=== PATIENT | male | born 1985 | race Caucasian/White ===

== ENCOUNTER 2016-06-19 22:00 | Emergency (ER) | payer OTHER ==
[~2016-06-19] VITALS: Ht 188 cm; Wt 99.8 kg
[2016-06-19] MEDS ORDERED: ATORVASTATIN CA40 M1 PO (22:45)
[2016-06-19] MEDS ORDERED: TRAMADOL HCL50 M1 PO (22:47)
--- NOTE | 2016-06-19 22:51 | ED UPPER/LOWER EXTREMITY COMPL ---
History of Present Illness General Chief Complaint: Hand or Wrist Injury Stated Complaint: L FOREARM SWELLING AND PAIN Source: patient Exam Limitations: no limitations Vital Signs & Intake/Output Vital Signs & Intake/Output Vital Signs Date Time Temp Pulse Resp B/P B/P Pulse O2 O2 Flow FiO2 Mean Ox Delivery Rate 06/19 2300 97.0 70 18 134/69 98 06/19 2204 98.5 106 20 144/82 98 Room Air ED Intake and Output 06/20 0000 06/19 1200 Intake Total Output Total Balance Patient 220 lb Weight Weight Reported by Patient Measurement Method Allergies Coded Allergies: MDX - Codeine (CODEINE) (Intermediate, THROAT SWELLING 03/25/15) Triage Note: PT TO ED C/O LEFT FOREARM PAIN AND SWELLING. FIRST NOTICED AFTER RAKING 3 DAYS AGO. 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 Triage Nurses Notes Reviewed? yes Onset: Gradual Duration: day(s): (3) Timing: no prior history Severity: moderate Severity Numbers: 8 Pain/Injury Location: Left: Forearm. Method of Injury: raking Modifying Factors: Improves With: immobilization. Worsens With: movement. HPI: Patient is a 31-year-old male presenting to the emergency Department chief complaint of left forearm pain and swelling has been going on for the past 3 days. He reports that it started today after he was raking percent hours. Denies any falls. Pain radiates down into the thumb. He has been having trouble gripping. Denies any nausea or vomiting fevers or chills chest pain or shortness of breath. Denies history of similar injury in the past. Has been trying pain medication and anti-inflammatories [id number] with little to no relief. (ENOC JEFFERY,CAROLINA) Reconcile Medications Atorvastatin Calcium 40 MG TABLET 1 TAB PO DAILY CHOLESTROL (Reported) Methylprednisolone. (Medrol) 4 MG TAB.DS.PK 1 DP PO AD tendinitis 6 on day 1 then reduce by one tablet daily until gone Tramadol HCl 50 MG TABLET 1 TAB PO TIDPRN BULGING DISK TO [facility] (Reported) (EDER CARTER,MIRIAN Russell) Past History Travel History Traveled to [place] past 21 day No Medical History Any Pertinent Medical History? see below for history Neurological: NONE EENT: NONE Cardiovascular: hyperlipidemia Respiratory: NONE Gastrointestinal: NONE Hepatic: NONE Renal: NONE Musculoskeletal: NONE Psychiatric: NONE Endocrine: NONE Tetanus Vaccine: 03/25/15 Surgical History Surgical History: non-contributory Psychosocial History What is your primary language [place]se Tobacco Use: Never used ETOH Use: denies use Illicit Drug Use: denies illicit drug use Family History Hx Contributory? No (CAROLINA SOTO) Review of Systems Review of Systems Constitutional: Reports: no symptoms. Comments Review of systems: See HPI, All other systems negative. Constitutional, no chills fever or weight loss HEENT: No visual changes no sore throat no congestion Cardiovascular: No chest pain ,palpitation Skin, no jaundice no rashes Respiratory: No dyspnea cough sputum or hemoptysis GI: No nausea no vomiting : No dysuria No hematuria Muscle skeletal: no back pain, no neck pain, Neurologic: No numbness no confusion Psych: No stress anxiety Immunology: No splenectomy or history of AIDS (CAROLINA SOTO) Physical Exam Physical Exam General Appearance: well developed/nourished, no apparent distress, alert, awake , comfortable Comments: Well-developed well-nourished no apparent distress. HEENT: Atraumatic, extraocular motion intact Neck: Supple, no lymphadenopathy Back: Nontender Respiratory: No respiratory distress Extremities: Mild edema appreciated over the left forearm, tender to palpation over the left forearm. Positive Phalen test on the left. Positive Igor on the left upper extremity. Radial pulses are 2+ bilaterally. Neuro: Alert and oriented x3, motor and sensory intact in upper extremity bilaterally. Psych: Mood affect normal, normal memory normal judgment. (CAROLINA SOTO) Progress Differential Diagnosis: contusion, dislocation, sprain, tendon injury Plan of Care: Orders Procedure Date/time Status Durable Medical Equipment 06/19 2317 Active Comments: Patient was performing repetitive movements by raking. positive Igor test. Likely de quervains tenosynovitis. Patient will be she does symptomatically with anti-inflammatories and splinting. He will follow up with orthopedic. (CAROLINA SOTO) Departure Departure Time of Disposition: 2307 Disposition: HOME OR SELF CARE Condition: Stable Clinical Impression Primary Impression: Tendinitis Referrals: RONAL CARTER,HONEY Russell (PCP/Family) CAROLYN CARTER,APRIL Additional Instructions: Follow-up with orthopedics call to make an appointment. Wear wrist splint as directed. Take anti-inflammatories as prescribed. Return for worsening symptoms or concerns. Departure Forms: Customer Survey General Discharge Information Prescriptions: Current Visit Scripts Methylprednisolone. (Medrol) 1 DP PO AD #1 DP 6 on day 1 then reduce by one tablet daily until gone (CAROLINA SOTO) PA/PROPOSAL CONSULTANT Co-Sign Statement Statement: ED Attending supervision documentation- [] I saw and evaluated the patient. I have also reviewed all the pertinent lab results and diagnostic results. I agree with the findings and the plan of care as documented in the PA's/PROPOSAL CONSULTANT's documentation. [x] I have reviewed the ED Record and agree with the PA's/PROPOSAL CONSULTANT's documentation. [] Additions or exceptions (if any) to the PAs/PROPOSAL CONSULTANT's note and plan are summarized below: [] (EDER CARTER,MIRIAN Russell) Procedures Splinting Location: left wrist Manual Alignment Performed: No Splint: thumb spica Splint Applied By: splint applied by me Pre-Proc Neuro Vasc Exam: normal Post-Proc Neuro Vasc Exam: normal Progress: tolerated procedure well (CAROLINA STOO)
[2016-06-19 23:00] VITALS: BP 134/69
[2016-06-19] MEDS ORDERED: MEDROL4 M2 PO (23:15)
[2016-07-16] MEDS ORDERED: TESSALON PERLE100 M1 PO
[2016-07-16] MEDS ORDERED: AMOXICILLIN875 M1 PO
== END 2016-06-19 23:57 ==
LOC: ERH 22:00
DX: M77.9 Enthesopathy, unspecified (principal)
CPT/HCPCS: J1885

== ENCOUNTER 2016-07-16 22:29 | Emergency (ER) | payer OTHER ==
[~2016-07-16] VITALS: Ht 188 cm; Wt 99.8 kg
[~2016-07-16 22:29] MED LIST: AMOXICILLIN875 M1 PO; ATORVASTATIN CA40 M1 PO; MEDROL4 M2 PO; TESSALON PERLE100 M1 PO; TRAMADOL HCL50 M1 PO
--- NOTE | 2016-07-17 00:01 | ED INFLUENZA/URI COMPLAINT ---
History of Present Illness General Chief Complaint: General Adult Stated Complaint: OVERALL WEAKNESS/LUMP ON HEAD Source: patient, old records Exam Limitations: no limitations Vital Signs & Intake/Output Vital Signs & Intake/Output Vital Signs Date Time Temp Pulse Resp B/P B/P Pulse O2 O2 Flow FiO2 Mean Ox Delivery Rate 07/17 0005 97.4 97 18 127/88 97 Room Air 07/16 2237 97.3 96 18 139/86 98 Room Air ED Intake and Output 07/17 0000 07/16 1200 Intake Total 0 Output Total Balance 0 Intake, Oral 0 Patient 220 lb Weight Weight Reported by Patient Measurement Method Allergies Coded Allergies: codeine (Intermediate, THROAT SWELLING 07/16/16) Reconcile Medications Amoxicillin 875 MG TABLET 1 TAB PO BID sinusitis/lyme Atorvastatin Calcium 40 MG TABLET 1 TAB PO DAILY CHOLESTROL (Reported) Benzonatate (Tessalon Perle) 100 MG CAPSULE 1 CAP PO TID PRN cough Methylprednisolone. (Medrol) 4 MG TAB.DS.PK 1 DP PO AD tendinitis 6 on day 1 then reduce by one tablet daily until gone Tramadol HCl 50 MG TABLET 1 TAB PO TIDPRN BULGING DISK TO [facility] (Reported) Triage Note: PT TO ED C/O ?TICK BITE TO BACK LEFT HEAD AT HAIRLINE. 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 ALSO C/O COUGH, SINUS CONGESTION FOR A WEEK. HAD HEADACHE EARLIER. "I TOOK 3 ALEVE AND IT WENT AWAY" ALSO C/O "OVERALL WEAKNESS" Triage Nurses Notes Reviewed? yes Onset: Last week Duration: day(s):, constant, continues in ED Timing: recent history Severity: mild, moderate Prior Episodes/Possible Cause: illness exposure No Modifying Factors: none Associated Symptoms: cough, nasal congestion, nasal drainage, sinus infection HPI: 1 week prior to admission patient complains of nasal congestion productive cough myalgia. Prior to admission he felt a bump on the back of his scalp and his partially removed a tick. He does not know how long it was on his scalp. He denies fever chills nausea vomiting diarrhea abdominal pain chest pain shortness breath headache dysuria rash bleeding. Past History Travel History Traveled to [place] past 21 day No Medical History Any Pertinent Medical History? see below for history Neurological: NONE EENT: NONE Cardiovascular: hyperlipidemia Respiratory: NONE Gastrointestinal: NONE Hepatic: NONE Renal: NONE Musculoskeletal: NONE Psychiatric: NONE Endocrine: NONE Tetanus Vaccine: 03/25/15 Surgical History Surgical History: non-contributory Psychosocial History What is your primary language [place]er Tobacco Use: Never used ETOH Use: denies use Illicit Drug Use: denies illicit drug use Family History Hx Contributory? No Review of Systems Review of Systems Constitutional: Reports: see HPI, malaise. EENTM: Reports: see HPI, nasal congestion. Respiratory: Reports: see HPI, cough, sputum production. Cardiovascular: Reports: no symptoms. GI: Reports: no symptoms. Genitourinary: Reports: no symptoms. Musculoskeletal: Reports: no symptoms. Skin: Reports: see HPI. Neurological/Psychological: Reports: no symptoms. Hematologic/Endocrine: Reports: no symptoms. Immunologic/Allergic: Reports: no symptoms. All Other Systems: Reviewed and Negative Physical Exam Physical Exam General Appearance: well developed/nourished, alert, awake, anxious, mild distress Head: atraumatic, Left lateral occipital area with tick remnant Eyes: Bilateral: normal appearance, PERRL, EOMI. Ears, Nose, Throat: moist mucous membrane, nasal congestion, nasal drainage, pharyngeal erythema Neck: normal inspection, supple, full range of motion, trachea midline, lymphadenopathy (R), lymphadenopathy (L) Respiratory: normal breath sounds, chest non-tender, no respiratory distress, quiet respiration, lungs clear Cardiovascular: regular rate/rhythm, normal peripheral pulses, norml femoral pulses equa Peripheral Pulses: 4+ carotid (R), 4+ carotid (L) Gastrointestinal: normal bowel sounds, soft, non-tender, no organomegaly Back: normal inspection, normal range of motion, no vertebral tenderness Extremities: normal inspection, normal capillary refill, normal range of motion, no edema Neurologic/Psych: no motor/sensory deficits, awake, alert, oriented x 3, normal gait, normal mood/affect Reflexes: 4+: bicep (R), bicep (L). Skin: intact, normal color Lymphatic: no anterior cervical ivy Core Measures Severe Sepsis Present: No Septic Shock Present: No Progress Differential Diagnosis: influenza, pharyngitis, sinusitis Plan of Care: Area prepped and draped. 1% lidocaine with epi 1 ml infiltrated. 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 Initial ED EKG: none Departure Departure Time of Disposition: 2357 Disposition: HOME OR SELF CARE Condition: Stable Clinical Impression Primary Impression: Sinusitis, acute Qualifiers: Sinusitis location: unspecified location Recurrence: not specified as recurrent Qualified Code: J01.90 - Acute sinusitis, unspecified Secondary Impressions: Tick bite of scalp Qualifiers: Encounter type: initial encounter Qualified Codes: S00.06XA - Insect bite (nonvenomous) of scalp, initial encounter; W57.XXXA - Bitten or stung by nonvenomous insect and other nonvenomous arthropods, initial encounter Referrals: RONAL CARTER,HONEY Russell (PCP/Family) Departure Forms: Customer Survey General Discharge Information Prescriptions: Current Visit Scripts Amoxicillin 1 TAB PO BID #42 TAB Benzonatate (Tessalon Perle) 1 CAP PO TID PRN cough #21 CAP
[2016-07-17 00:05] VITALS: BP 127/88
== END 2016-07-17 00:32 ==
LOC: ERH 22:29
DX: S00.06XA Insect bite (nonvenomous) of scalp, initial encounter (principal); J01.90 Acute sinusitis, unspecified; W57.XXXA Bitten or stung by nonvenomous insect and other nonvenomous arthropods, initial encounter; Y93.9 Activity, unspecified; Y92.9 Unspecified place or not applicable